=== PATIENT | male | born 1975 | race Caucasian/White ===

== ENCOUNTER 2020-10-04 14:59 | Emergency (ER) | payer BC ==
[~2020-10-04] VITALS: Ht 177.8 cm; Wt 90.5 kg
[2020-10-04 15:06] VITALS: TEMP 98.2
[2020-10-04] MEDS ORDERED: MOBIC15 MG PO (15:28)
[2020-10-04] MEDS ORDERED: TENORMIN 2525 MG/TAB PO (15:28)
[2020-10-04] MEDS ORDERED: TALTZ AUTO80 MG/1 ML SQ (15:29)
[2020-10-04] MEDS ORDERED: CEPHALEXIN500 M1 PO (15:47)
[2020-10-04 15:54] VITALS: BP 154/99; PULSE 79
== END 2020-10-04 15:56 | disposition home or self-care (01) ==
LOC: COL.ER 14:59
DX: S61.313A Laceration without foreign body of left middle finger with damage to nail, initial encounter (principal); F17.290 Nicotine dependence, other tobacco product, uncomplicated; Z23 Encounter for immunization; W31.2XXA Contact with powered woodworking and forming machines, initial encounter

== ENCOUNTER → 2020-10-13 | Outpatient (CLI) | payer BC ==
[~2020-10-13] MED LIST: CEPHALEXIN500 M1 PO; MOBIC15 MG PO; TALTZ AUTO80 MG/1 ML SQ; TENORMIN 2525 MG/TAB PO
[2020-10-13 19:10] VITALS: BP 154/88; PULSE 75; TEMP 98.8
== END ==
LOC: COL.ER 18:56
DX: Z48.02 Encounter for removal of sutures (principal)